=== PATIENT | male | born 1960 | race Caucasian/White ===

== ENCOUNTER 2023-10-04 14:54 | Outpatient (CLI) | payer OTHER, SELFPAY ==
--- NOTE | 2023-10-04 10:15 | DI.RAD_ITS ---
Exam(s) XR KNEE RT 3V AP,LAT,LAURIE EXAM: XR KNEE RT 3V AP,LAT,LAURIE CLINICAL HISTORY: eval R knee cyst with h/o TKA. TECHNIQUE: 2D digital imaging was performed. Three views. COMPARISON: CR RIGHT KNEE 3 VIEWS from 11/20/2009 FINDINGS: BONES: No acute fracture is present. No bony destructive lesion is seen. JOINTS: There has been no change in the total knee prosthesis. No abnormal surrounding lucencies. N o change in calcification adjacent to lateral femoral condyle. Screws again noted in medial femoral condyle. No joint effusion is seen. SOFT TISSUE: Normal. IMPRESSION: Stable appearance of the right knee prosthesis. DATA REPOSITORY: RADIATION DOSE DELIVERED:
== END 2023-10-04 14:55 | disposition home or self-care (01) ==
LOC: DIORS 14:58
PROVIDERS: Visit Provider Student in an Organized Health Care Education/Training Program
DX: M71.21 Synovial cyst of popliteal space [Baker], right knee (principal); T84.84XA Pain due to internal orthopedic prosthetic devices, implants and grafts, initial encounter; Z96.651 Presence of right artificial knee joint
CPT/HCPCS: 73562

== ENCOUNTER → 2023-10-19 00:10 | Outpatient (CLI) | payer OTHER, SELFPAY ==
--- NOTE | 2023-10-19 06:15 | DI.MRI_ITS ---
Exam(s) MR LOWER JOINT RT WO EXAM: MR LOWER JOINT RT WO CLINICAL HISTORY: PAINFUL RT TOTAL KNEE,SYNOVIAL CYST,t84.84XA,M71.21 TECHNIQUE: Multiplanar multisequence MRI of the knee was performed. COMPARISON: CR XR KNEE RT 3V AP,LAT,LAURIE from 10/04/2023 FINDINGS: PROSTHESIS/MARROW: There is a right knee prosthesis resulting abundant artifact. There does not appe ar to be a significant amount of bone edema to suggest osteomyelitis. EFFUSION: There is a significant size joint effusion both in the suprapatellar bursa region and there is also a large Grove's cyst in the medial popliteal fossa which exhibits a typical Grove cyst neck between the medial gastrocnemius and semimembranosus. This Grove cyst measures 9.8 cm craniocaudal l ength by 3.5 cm maximum AP measurement by 7 cm maximum width measurement. It contains a few thin int ernal septations. There is a small amount of fluid over the subjacent gastro cine miss which may imp ly some leaking from this large Grove cyst. In addition to the Grove cyst there is another smaller fluid collection more laterally located in the upper popliteal fossa, this separate fluid collection located only 4 mm lateral to the above describ ed Grove cyst. This fluid collection measures 6 cm cephalocaudal by 1.6 cm wide by 1.5 cm AP. There is a 3rd collection which is located in the upper most medial aspect of the popliteal fossa which ap pears from the above described Grove cyst by distance of 4 millimeters. This is multi sept ated and measures 4 cm craniocaudal by 1.5 cm AP by 2.1 cm wide. It actually contacts the most media l aspect of the Grove cyst. There is a slight possibility that there is actually a thin neck between these 2 adjacent collections. PATELLOFEMORAL COMPARTMENT: The quadriceps tendon is intact. The patellar ligament is intact. There is no abnormal intraosseous signal in the patella. No prepatellar fluid collection LATERAL COLLATERAL LIGAMENT COMPLEX: The fibular collateral ligament appears intact. The biceps femo ris tendon appears intact.Popliteus muscle and tendon are intact. MEDIAL COLLATERAL LIGAMENT: There are 2 screws in the medial femoral condyle which are probably relat ed to MCL attachment surgery. These are associated with abundant artifact. However, on the axial im ages the main MCL component appears intact. IMPRESSION: 1. Prosthesis components in place with no associated abnormal marrow signal. 2. In addition to a joint effusion in the suprapatellar bursa, there are multiple fluid collections p osteriorly in the popliteal fossa. The largest is a Grove's cyst measuring 9.8 cm craniocaudal x 3.5 cm AP x 7 cm wide. Immediately adjacent to this is a multi-septated para-articular ganglia on cysts measuring 4 cm craniocaudal x 1.5 cm AP x 2.1 cm wide. 3. More laterally in the popliteal fossa there is another fluid collection measuring 6 cm craniocauda l x 1.6 cm wide x 0.5 cm AP Other findings as above. DATA REPOSITORY:
== END ==
PROVIDERS: Visit Provider Student in an Organized Health Care Education/Training Program
DX: T84.84XA Pain due to internal orthopedic prosthetic devices, implants and grafts, initial encounter (principal); Z96.651 Presence of right artificial knee joint; M71.21 Synovial cyst of popliteal space [Baker], right knee
CPT/HCPCS: 73721

== ENCOUNTER → 2023-11-07 03:27 | Outpatient (CLI) | payer OTHER, SELFPAY ==
--- NOTE | 2023-11-07 07:02 | DI.NM_ITS ---
Exam(s) NM BONE SCAN 3 PHASE EXAM: RI BONE SCAN 3 PHASE CLINICAL HISTORY: ? loosening prosthesis,synovial cyst,m71.21,[id number]. TECHNIQUE: Injected Dose: 27.4 mCi Tc-99m MDP COMPARISON: CR LEFT SHOULDER 1 VIEW from 11/29/2009 CR LEFT CLAVICLE from 12/14/2009 CR XR KNEE RT 3V AP,LAT,LAURIE from 10/04/2023 MR MR LOWER JOINT RT WO from 10/19/2023 FINDINGS: Perfusion: Symmetric. Blood Pool: Mildly increased activity in the soft tissues around the right knee prosthesis. Delayed: Mildly increased activity at the lateral aspect of the femoral component of the prosthesis. Plain films show on elongated calcification in this region. Minimal activity in the tibial plateau. Some increased activity in the patella. Whole body images show some increased activity in the left mid humerus. There is an old fracture see n on the 2009 plain films. IMPRESSION: Mildly increased activity around the knee prosthesis. No definite findings to suggest loosening. DATA REPOSITORY:
== END ==
PROVIDERS: Visit Provider Student in an Organized Health Care Education/Training Program
DX: M71.21 Synovial cyst of popliteal space [Baker], right knee (principal); M79.89 Other specified soft tissue disorders; T84.84XA Pain due to internal orthopedic prosthetic devices, implants and grafts, initial encounter; Z96.651 Presence of right artificial knee joint
CPT/HCPCS: 78315

== ENCOUNTER 2023-11-29 05:03 | Outpatient (CLI) | payer OTHER, SELFPAY ==
[2023-11-29 12:20] LABS: HCT 45.5 % (40.0-50.0); HGB 15.1 g/dL (13.5-17.5); MCH 30.7 pg (27.0-33.0); MCHC 33.2 % (32.0-36.0); MCV 93 fL (80-95); MPV 10.6 fL (8.0-11.0); Platelet Count 326 10^3/uL (130-400); RBC 4.92 10^6/uL (4.36-5.78); RDW 14.1 % (11.8-14.1); RDW-SD 47.6 fL; WBC 10.04 10^3/uL (4.4-10.8)
[2023-11-29 12:48] LABS: Anion Gap 9.9 mmol/L (3-11); BUN 18 mg/dL (7-18); CO2 30.1 mmol/L (21.0-32.0); CREATININE 0.9 mg/dL (0.70-1.30); Calcium 9.5 mg/dL (8.5-10.1); Chloride 100 mmol/L (98-107); Estimated GFR 95.37 (mL/min/1.73m2); Glucose 99 mg/dL (74-106); Sodium 140 mmol/L (136-145)
== END 2023-11-29 05:04 | disposition home or self-care (01) ==
LOC: LBO 05:03
PROVIDERS: Visit Provider Student in an Organized Health Care Education/Training Program
DX: T84.84XA Pain due to internal orthopedic prosthetic devices, implants and grafts, initial encounter (principal); Z96.651 Presence of right artificial knee joint; M71.21 Synovial cyst of popliteal space [Baker], right knee; Z01.818 Encounter for other preprocedural examination; X58.XXXA Exposure to other specified factors, initial encounter
CPT/HCPCS: 36415; 80048; 85027

== ENCOUNTER 2023-12-12 08:47 | Inpatient (IN) | payer OTHER, SELFPAY ==
[2023-12-12] VITALS (9 sets, daily range): BP systolic 108–178; BP diastolic 58–89; PULSE 55–68; RESP 16–22; TEMP 36.3–37; O2SAT 90–99; BMI 34.2
[2023-12-12] MEDS: Lactated Ringers 1,000 ML 80 ML IV (09:37)
[2023-12-12] MEDS: Gabapentin 300 MG CAP PO ×2 (09:38→20:23)
[2023-12-12] MEDS: Acetaminophen 500 MG TAB 1000 MG PO ×3 (09:38→20:23)
[2023-12-12] MEDS: Celecoxib 200 MG CAP 400 MG PO (09:38)
--- NOTE | 2023-12-12 11:03 | ANES.PREOP_ITS ---
General Info Date of Service Date Performed: 12/12/23 Height: 5 ft 10 in Weight: 108.1 kg Body Mass Index (BMI): 34.2 Surgical Procedure: Operation Date: 12/12/23 11:40 Proposed Procedure Side Surgeon p Knee Total Revision, Patella & Poly Right Marko Hodges MD Meds Allergies and Home Medications Allergies Allergy/AdvReac Type Severity Reaction Status Date / Time chocolate flavor AdvReac UPSETS Verified 12/12/23 09:05 STOMACH NSAIDS (Non-Steroidal AdvReac Other (See Verified 12/12/23 09:05 Anti-Inflamma Comment) Home Medication Medication Instructions Recorded folic acid 1 mg tablet 2 mg PO DAILY 07/08/13 amlodipine 5 mg tablet 5 mg PO DAILY 08/29/23 fluoxetine 40 mg capsule 40 mg PO DAILY 08/29/23 methotrexate sodium 2.5 mg tablet 15 mg PO QWEEK 08/29/23 Current Visit Medications: Current Medications Generic Name Dose Route Start Last Admin Trade Name Freq PRN Reason Stop Dose Admin Acetaminophen 1,000 mg 12/12/23 06:00 12/12/23 09:38 Acetaminophen 500 Mg Tab PO 01/10/24 23:59 1,000 mg PREOP MERI Administration Acetaminophen 1,000 mg 12/12/23 14:00 Acetaminophen 500 Mg Tab PO TID MERI Aspirin 81 mg 12/12/23 20:00 Aspirin E.C. 81 Mg Tabec PO BID MERI Celecoxib 400 mg 12/12/23 06:00 12/12/23 09:38 Celecoxib 200 Mg Cap PO 01/10/24 23:59 400 mg PREOP MERI Administration Celecoxib 200 mg 12/12/23 20:00 Celecoxib 200 Mg Cap PO BID MERI Dexamethasone 4 mg 12/13/23 08:30 Dexamethasone 4 Mg Tab PO 12/14/23 08:31 DAILY MERI Docusate Sodium 100 mg 12/12/23 09:59 Docusate Sodium 100 Mg Cap PO BID PRN PRN Constipation Gabapentin 300 mg 12/12/23 06:00 12/12/23 09:38 Gabapentin 300 Mg Cap PO 01/10/24 23:59 300 mg PREOP MERI Administration Gabapentin 300 mg 12/12/23 20:00 Gabapentin 300 Mg Cap PO HS MERI Ringer's Solution 1,000 mls @ 80 mls/hr 12/12/23 06:00 12/12/23 09:37 IV 01/10/24 23:59 80 mls/hr INFUSION MERI Administration Cefazolin Sodium/Dextrose 2 gm in 50 mls @ 100 mls/hr 12/12/23 06:00 Ancef Duplex IVPB 01/10/24 23:59 PREOP MERI Tranexamic Acid/Sodium Chloride 1,000 mg in 100 mls @ 600 mls/hr 12/12/23 06:00 IVPB 01/10/24 23:59 PREOP MERI Cefazolin Sodium/Dextrose 1 gm in 50 mls @ 100 mls/hr 12/12/23 10:00 Ancef Duplex IVPB 12/13/23 02:29 Q8H MERI IV Miscellaneous Supplies 1 each 12/12/23 06:00 Iv Access IV 01/10/24 23:59 DIRECTED MERI Ondansetron HCl 4 mg 12/12/23 09:59 Ondansetron 4 Mg/2 Ml Vial IVP Q6H PRN PRN Nausea Oxycodone HCl 0 mg 12/12/23 09:59 Oxycodone 5 Mg Tab PO Q3H PRN PRN Pain Pantoprazole Sodium 40 mg 12/13/23 07:30 Pantoprazole 40 Mg Tabcr PO DAILY@0730 MERI Polyethylene Glycol 17 gm 12/12/23 09:59 Polyethylene Glycol 3350 17 Gm Packet PO BID PRN PRN Constipation Sodium Chloride 0 ml 12/12/23 06:00 Normal Saline Flush 10 Ml Syr IV 01/10/24 23:59 PRN PRN Sodium Chloride 0 ml 12/12/23 06:00 Normal Saline 10 Ml Vial IJ 01/10/24 23:59 DIRECTED PRN Sterile Water 0 ml 12/12/23 06:00 Water,Injection,Sterile 10 Ml Vial IJ 01/10/24 23:59 DIRECTED PRN PFSH Active Problems Active Problems: Problem Status Onset Code Painful total knee replacement, right T84.84XA, Z96.651 Synovial cyst of right popliteal space M71.21 Depression F32.A Seropositive rheumatoid arthritis M05.9 Cardiac murmur R01.1 Hypertension I10 Surgical History Surgical History History of surgery on arm Metal carmen in (L) arm Total knee arthroplasty (03/26/06) Right ORIF clavicle (11/29/09) left Tobacco Smoking/Tobacco Use Status: Never Alcohol Alcohol Intake: never Substance Use Substance use: Daily Substance use type: marijuana Details: No marijuana use today. Vital Signs and Lab Results Vital Signs Most Recent Vital Signs in EMR: Most Recent Vital Signs Temp Pulse Resp BP Pulse Ox 36.4 C L 59 L 16 162/75 H 99 12/12/23 09:07 12/12/23 09:07 12/12/23 09:07 12/12/23 09:07 12/12/23 09:07 Lab Results Blood Type / Crossmatch: No Data to Display Complete Blood Count: White Blood Count 10.04 10^3/uL (4.4-10.8) 11/29/23 12:06 Red Blood Count 4.92 10^6/uL (4.36-5.78) 11/29/23 12:06 Hemoglobin 15.1 g/dL (13.5-17.5) 11/29/23 12:06 Hematocrit 45.5 % (40.0-50.0) 11/29/23 12:06 Platelet Count 326 10^3/uL (130-400) 11/29/23 12:06 Complete Metabolic Panel: Sodium 140 mmol/L (136-145) 11/29/23 12:06 Potassium 4.0 mmol/L (3.5-5.1) 11/29/23 12:06 Chloride 100 mmol/L (98-107) 11/29/23 12:06 Carbon Dioxide 30.1 mmol/L (21.0-32.0) 11/29/23 12:06 BUN 18 mg/dL (7-18) 11/29/23 12:06 Creatinine 0.9 mg/dL (0.70-1.30) 11/29/23 12:06 Est GFR (CKD-EPI 2020) 95.37 (mL/min/1.73m2) 11/29/23 12:06 Calcium 9.5 mg/dL (8.5-10.1) 11/29/23 12:06 Glucose 99 mg/dL (74-106) 11/29/23 12:06 Liver Function Panel: No Data to Display Coagulation Panel: No Data to Display Cardiac Panel: No Data to Display Arterial Blood Gas: 2 No Data to Display Venous Blood Gas: No Data to Display Pancreas Panel: No Data to Display Thyroid Panel: No Data to Display Infectious Disease: No Data to Display Blood Cultures: No Data to Display Toxicology Panel: No Data to Display Imaging and Studies Imaging and Studies Study information below may be from another EMR and interpreted by another provider. Please see original notes in EMR for more complete details. Echocardiogram Summary: 12/20: LVEF 65%, no sig valve issues. Anesthesia Assessment and Plan Anesthesia History Personal History: No History of Anesthesia Complications Family History: No Family History of Anesthesia Complications Exercise Tolerance Exercise Tolerance: Metabolic Equivalents>4 Cardiac & Pulmonary Exam Cardiac Exam: Normal S1/S2 Heart Sounds Pulmonary Exam: Clear Bilateral Breath Sounds Implantable Cardiac Device Does patient have a Pacemaker or an ICD?: No Airway Exam Known Difficult Airway: No Mallampati Class: 3 Mouth Opening: Normal (> 3cm) Thyromental Distance: Greater than 3 cm Neck Range of Motion: Full ROM Neck Circumference: Thick Teeth Condition: Normal Dentition ASA Classification ASA Score: ASA 2 Emergency Case?: No NPO Status NPO Status: NPO Clears >2 hours, Solids >8 hours Anesthesia Plan Resuscitation Status: Full Code Anesthesia Technique: Spinal Anesthesia Airway Planned: Natural Airway Pain Management: Surgeon and patient request nerve block Monitors Used: Standard Monitors Preoperative Comments:: 63 yo male for TKA revision. Sig PMHx: HTN (amlodipine), RA (methotrexate), depression (fluoxetine). never smoker, daily cannabis.
[2023-12-12] MEDS: ceFAZolin 2 GM/50 ML BAG IVPB (12:21)
[2023-12-12] MEDS: TRANEXAMIC ACID/SOD. CHL. 1,000 MG/100 ML BAG 600 MG IVPB (12:35)
--- NOTE | 2023-12-12 13:00 | W.ANESNERVE ---
Nerve Block Single Injection Procedure Date and Time Date Performed: 12/12/23 Procedure Start: 11:54 Location Where Procedure Performed Procedure Location: Day Surgery Unit Reason Performed: Postoperative Analgesia Requesting Provider: Marko Hodges Timeout Performed Timeout Performed: Yes Monitoring Used ECG, Blood Pressure, SpO2, ETCO2 and See EMR for corresponding vital signs Sterility Sterility: Hand Hygiene, Surgical Cap, Surgical Mask, Sterile Gloves, Sterile Drape/Sheet, Eye Protection and Chlorhexidine Sedation Given During Procedure Sedation Given (Indicate Dose Given): Versed IV Dose:: 3mg IVP Patient Mental Status Patient Mental Status: Sedate with meaningful communication Nerve Block 1st Nerve Block: Laterality: Right Block Type: Adductor Canal Ultrasound Image Saved?: Yes Needle / Catheter Used: 100mm SonoPlex II Local Anesthetic Bolus (Indicate Dose Given): Lidocaine used for local infiltration of skin and Ropivacaine 0.5% Dose:: 0.5%/25cc (125mg) Additives (Indicate Dose Given): Epinephrine to make 1:200,000 (5mcg/ml) Dose:: 125mcg and Decadron Dose:: 10mg PF Ultrasound: Sterile probe cover and gel used Nerve Stimulator: Not Used Paresthesia: None Procedure Tolerated: No Complications and Patient tolerated well Procedure Outcome: Successful Performed By: Ruy Huber
--- NOTE | 2023-12-12 15:21 | NUR.NOTE ---
Nursing Note: admitted from PACU, denies pain, states he has morongo numbness/tingling to right LE (surgical side). slid over to bed using hover mat. VSS
[2023-12-12] MEDS: Normal Saline Flush 10 ML SYR IV ×2 (16:01→20:24)
--- NOTE | 2023-12-12 16:05 | W.ANESPOSTOP ---
Postoperative Evaluation Date, Time and Location Date Performed: 12/12/23 Time Performed: 16:05 Patient Location: Med/Surg Vital Signs Most Recent Imported Vital Signs: Most Recent Vital Signs Temp Pulse Resp BP Pulse Ox 36.5 C 61 20 178/89 H 94 12/12/23 14:51 12/12/23 14:51 12/12/23 14:51 12/12/23 14:51 12/12/23 14:51 Pain Score Most Recent Pain Score: Most Recent Pain Score Pain Level 2 12/12/23 16:00 Assessment Mental Status: Awake (Alert & Oriented to Patient Baseline) Airway and Respiratory Function: Patent airway with normal (patient baseline) respiratory exam Cardiovascular Function: Hemodynamically Stable Hydration Status: Adequately Hydrated Nausea & Vomiting: No Nausea or Vomiting Pain: Pain is tolerable per patient Peripheral Nerve Block: Regional nerve block not resolved at time of post operative discharge
--- NOTE | 2023-12-12 16:33 | PT.INIE ---
PT Notes Physical Therapy Inpatient Initial Evaluation Date: 12/12/2023 Referring Doctor: ALEK Cummings PT Orders: PT CONSULT: S/P Ortho surgery Precautions: Fall. Standard precautions. WBAT on right LE with AD per Dr. Hodges. Patient Profile/Admitting Diagnosis: Isidro is a 63-year-old male with painful painful total knee arthroplasty on the right side as well as synovitis cyst of the right popliteal space status post right TKA revision on postoperative day 0. Initial right TKA was done back in 2005. PMHX: Surgical History Total knee arthroplasty (03/26/06) Right ORIF clavicle (11/29/09) left Social History/Home Situation: Independent in all aspects of ADLs prior to [id number] male has had increasing difficulty with mobility ADL performance due to painful TKA. Equipment Owned/DME: None Subjective: 08/08 pain in the R knee with WB. Denied headache, chest pain, and lightheadedness throughout session. Objective: General Observation: Resting in bed. MICHAEL wraps to right knee. Cryocuff to right knee. TEDS to left leg. Mental Status: Alert and oriented as to person, place, time, and purpose. Able to pay attention, focus, and respond appropriately. Pain: As above Vital Signs: WNL as closley monitored by Nurse Velarde ROM: Right Lower Extremity: Hip flexion WFL. Hip abduction WFL. Knee flexion about 10 degrees to 100 degrees ACTIVELY while seated at edge of bed. Ankle dorsiflexion WFL. Ankle plantarflexion WFL. Left Lower Extremity: Hip flexion WFL. Hip abduction WFL. Knee flexion WFL. Ankle dorsiflexion WFL. Ankle plantarflexion WFL. Strength: Right Lower Extremity: Hip flexors 4/5. Hip abductors 4/5. Knee flexors 3-/5. Knee extensors 3-/5. Ankle dorsiflexors 4/5. Ankle plantarflexors 4/5. Left Lower Extremity: Hip flexors 5/5. Hip abductors 5/5. Knee flexors 5/5. Knee extensors 5/5. Ankle dorsiflexors 5/5. Ankle plantarflexors 5/5. Sensation: Intact as to pain and light pressure and bilateral lower extremities Bed Mobility/Transfers: Minimal cueing provided for use of B hands as needed for support, movement sequence, AD management, and posture to reduce fall risk and minimize pain report Supine to sit stand by assist with HOB at 30 degrees Sit to stand contact-guard assist using FWW Stand to sit contact-guard assist using FWW using both hands for support Bed to toilet seat contact-guard assist using FWW Toilet seat to reclining chair contact-guard assist using FWW Gait: Facilitated safe and correct performance of level surface ambulation covering a distance of 100 feet with a reciprocal swing through heel-toe gait pattern requiring only contact-guard assist and wheelchair follow. Minimal verbal cueing only for limb sequence, AD management, and posture to minimize pain report and reduce fall risk. Stairs: Will test tomorrow morning Balance: Static Sitting: Normal Dynamic Sitting: Normal Static Standing: Fair Dynamic Standing: Fair Special Tests: Mobility Limitations Standardized Measure [facility] AM-PAC 6 clicks Basic Mobility Inpatient Short Form: Raw Score: 20 CMS Score: 36% deficit Informed Consent/Education: Patient was instructed in purpose of PT consult and plan of care. Agreeable to proceed with established PT POC to achieve personal goals. ASSESSMENT: Advised patient on the use of supportive footwear at home. Required use of front wheeled walker for all mobility ADL performance maximize independence and reduce fall risk without any undue pain. Patient presents with clinical signs and symptoms consistent with current/admitting diagnoses that have resulted to mobility limitations, gait instability, generalized weakness, and overall ADL decline as demonstrated by the following impairment level findings: 1. Decreased strength to R knee major muscle groups 2. Impaired sitting/standing balance 3. Impaired activity tolerance 4. Limitation of joint range of motion in R knee Impairments are contributing to the following functional limitations: 1. Decline in bed mobility skills 2. Decline in transfer skills 3. Difficulty with ambulation without assistive device and physical assistance 4. Increased completion time for mobility ADL performance 5. Increased risk for falls 6. Difficulty with managing steps alone safely Patient is assessed as a 61143 moderate complexity complexity based on the following: History: 63-year-old male with past medical history as indicated above Examination: Demonstrable impairment in strength, balance, and mobility level with underlying impairments and functional limitations as exhibited above as well as deficit score of 46% utilizing the [facility] [place] Mobility Inpatient Short Form Presentation: Evolving Decision Makin moderate complexity Goals: Goals X1 week 1. Supine-Sit independent 2. Sit-Supine independent 3. Sit-Stand independent 4. Stand-Sit independent with FWW 5. Bed-Chair independent with FWW 6. Chair-Bed independent with FWW 7. Independent gait on level surface with use of FWW for at least 300 feet without report of pain nor dyspnea 8. Independent stair negotiation while holding onto B rails for at least 3 steps without report of pain nor dyspnea 9. Independent with home exercise program 10. Good static and dynamic standing balance/tolerance Plan of Care/Treatment Plan: 1-2x/day, 7 days/week x 1 week. Plan of care has been reviewed with the [employer] providing the service under Physical Therapy direction. Initiate Physical Therapy intervention for pain management as needed, strengthening, bed mobility, transfers, gait, stairs, balance training, and use of assistive device. -Ensure that following is done with patient prior to discharge: Stair negotiation training HEP review Increase independence with level surface ambulation DISCHARGE RECOMMENDATIONS: [] Home with no services [] [] Home with services [specify] [X] Home with outpatient PT. home when medically cleared by orthopedic surgeon. Recommend outpatient PT services in order to optimize functional mobility outcomes and facilitate return to independent community ambulation without an assistive device. [] SNF for continued rehabilitation [] [] Care Home Care [] [] SNF versus LTC based on ability to participate and progress [] TREATMENT CODE/TIME: 9716 2 x 20 minutes for 1 unit, 9753 0 x 10 minutes for 1 unit (16:33-17:03). Thank you for the opportunity to participate in the care of this patient. Abi Enciso PT, DPT, CLT [facility] [place], [place]
[2023-12-12] MEDS: Celecoxib 200 MG CAP PO (20:23)
[2023-12-12] MEDS: Aspirin E.C. 81 MG TABEC PO (20:23)
[2023-12-12] MEDS: ceFAZolin 1 GM/50 ML BAG IVPB (20:24)
--- NOTE | 2023-12-12 21:21 | W.PM.OP ---
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 POST-OP DIAGNOSIS: same (Polyethylene Fracture) PROCEDURE: Revision of patella component - Right Knee Revision of polyethylene - Right Knee Extensive synovectomy and debridement - Right Knee SURGEON: Marko Hodges JAVA TECHNICAL ARCHITECT: Desean Mahmood ANESTHESIA TYPE: Spinal Refer to Anesthesia Record ESTIMATED BLOOD LOSS: 100 TOURNIQUET TIME: 0 COMPLICATIONS: None Patient was transported to: PACU Patient's condition: stable Implants: Depuy 38mm patella button Depuy Sigma 5x12.5mm RP/PS Polyethylene Indications: Isidro is an active 63-year-old who underwent knee replacement on the right knee for posttraumatic arthritis 16 or so years ago. He had some progressive mild pain but notable swelling about the knee. X-rays showed maltracking and apparent failure of the patellar component. MRI showed significant synovitis, effusion, with debris. He had mild activity on the bone scan and no overt signs of loosening clinically or radiographically. Therefore, I offered aggressive synovectomy debridement with revision of the patellar component and replacement of the polyethylene. I discussed the technical features of this case. I discussed the risk to include bleeding, infection, pain, stiffness, continued swelling, need for repeat procedures, damage to nerves and vessels, recurrence, blood clot. Findings: There was a large effusion within the knee. The polyethylene between the femur and tibia had notable wear laterally about the knee fracturing of the anterior aspect of the lateral portion of the polyethylene. There is also notable wear and deformity of the post. The patella was tracking on its medial edge with fracturing and absence of a large portion of the medial patellar button. I was unable to evacuate the popliteal cyst from within the knee. Procedure Description: Isidro was greeted in the preoperative holding area where the correct side was identified and marked. The consent was reviewed with the patient and signed. The history and physical was updated. All questions were answered. Preoperative mediacations were administered: Acetaminophen 1000mg, Celebrex 400mg, and Gabapentin 300mg. An adductor canal block was then administered by the anesthesia team in the DSU. Isidro was taken back to the operating room. A spinal anesthestic was administered. The patient was placed into the supine position on the operating room table. Posts were placed for positioning during the procedure. All bony prominences were well padded. Prophylactic antibiotics in the form of Cefazolin were administered. The left leg was then prepped with Chloraprep and draped in a standard fashion with impervious stockinette. A second prep with Chloraprep was performed prior to application of Iodine impregnated skin protection. A timeout to confirm correct identity, side and site, procedure, allergies, anesthesia, and medical concerns was performed. With the knee in some flexion, the previous medial curved incision was utilized. Full thickness skin flaps were raised once the extensor mechanism was encountered. These were raised medially and laterally. There was some widening of the tenderness junction of the quadriceps at the level of the patella which I thought could represent potential stretching of the arthrotomy repair. However, this appears to be intact without defect without clear diastases of the arthrotomy site. I then performed a medial parapatellar arthrotomy. There is a significant rooney of joint fluid encountered with polyethylene particulate debris. It was obvious at this point that there was fracturing of the anterior aspect the lateral polyethylene. Blood cultures utilized for coagulation. An aggressive synovectomy was performed utilizing 2 Allis and 2 Jayne clamp. This was taken around the entirety of the knee. There is some synovitis and some inflammatory changes seen at the bone cement junction. However, there is no gross loosening. There is an area of bony erosion seen over the anterior medial aspect of the proximal tibia adjacent to the tibial tray. However, there is no gross loosening. Attention was turned to the patella. There was notable wear of the patella over his medial side with approximate one third of the patella button not present. Using a freehand type technique I performed resection of the patella leaving behind approximately 13 to 14 mm in a level fashion. Any remnant cement polyethylene was removed. A 38 mm patella fit appropriately and was trialed showing excellent tracking. Lug drills were prepared. The knee was then flexed up and the polyethylene was removed. I then continued to perform synovectomy posteriorly. There is notable synovitis in the posterior aspect the knee with some polyethylene debris. This was removed. I tried to enter the popliteal cyst from within the knee utilizing a Largo as well as with the capsular releases. However, was unable to express significant fluid from the popliteal cystic structures. Once again, irrigated the knee. There is no remnant debris appreciated. The knee in a hyperflexed position a new 5 x 12.5 mm rotating platform, posterior stabilized polyethylene was then inserted. The knee was then brought into extension. The periosteal and capsular tissues were then systematically injected with a periarticular cocktail consisting of 50cc 0.25% ropivacaine, epinephrine, clonidine, ketorolac. Wound was irrigated utilizing surgery for Betadine solution where he was allowed to sit for 3 minutes prior to irrigating out with saline. Using #2 FiberWire, the arthrotomy and quadriceps split was repaired. This was done in interrupted fashion using [id number] and simple sutures. This was reinforced with a running strata fix, barbed suture. Deep tissues were then reapproximated with 0 Vicryl and 2-0 Vicryl. The skin was closed with a running 3-0 Monocryl in a subcuticular fashion. This was reinforced with skin glue. A Mepilex silver dressing was applied along with a [id number]-ysvsj MICHAEL wrap. A CryoCuff was applied. Jonathan was transferred to the hospital stretcher without difficulty an suffering no apparent complication. Isidro has a good prognosis. Aspirin 81mg BID will be used for DVT prophylaxis.
[2023-12-13 03:38] VITALS: BP 132/76; PULSE 60; RESP 16; TEMP 36.7; O2SAT 96
[2023-12-13] MEDS: ceFAZolin 1 GM/50 ML BAG IVPB (03:52)
[2023-12-13] MEDS: Normal Saline Flush 10 ML SYR IV (03:52)
[2023-12-13] MEDS: oxyCODONE 5 MG TAB PO (05:40)
[2023-12-13 07:06] VITALS: BP 143/66; PULSE 60; RESP 20; TEMP 37.1; O2SAT 95
--- NOTE | 2023-12-13 07:58 | DSE_ITS ---
Date of service: 12/13/23 Time of Service: 07:58 DS: Diagnosis Discharge Diagnosis (1) Painful total knee replacement, right: Status: Acute Discharge Plan Disposition Patient Disposition: Home Condition: Good Discharge Details Reason For Visit: Painful R TKR Admit Date/Time: 12/12/23 08:47 Admit Provider: Marko Hodges Attending Provider: Marko Hodges Primary Care Provider: Linda Buckley [facility] [place] Course Hospital Course: Patient was admitted to the medical/surgical floor following the procedure. The surgery was tolerated well without any notable medical, surgical, or anesthetic complications. Mobilization began postoperatively. He was voiding spontaneously. Vitals were stable. Physical therapy worked with the patient and was cleared for discharge home. No acute medical issues. Pain was controlled on oral regimen. Home Meds and New Rx's Prescriptions: New celecoxib 200 mg capsule 200 mg PO BID PRN (Reason: pain) Qty: 60 1RF aspirin 81 mg tablet,delayed release (DR/EC) 81 mg PO BID Qty: 60 0RF acetaminophen 500 mg tablet 1,000 mg PO Q8H PRN (Reason: pain) Qty: 90 3RF pantoprazole 40 mg tablet,delayed release (DR/EC) 40 mg PO DAILY Qty: 30 0RF oxycodone 5 mg tablet 5 mg PO Q6H PRN (Reason: pain) Qty: 12 0RF Continued amlodipine 5 mg tablet 5 mg PO DAILY fluoxetine 40 mg capsule 40 mg PO DAILY methotrexate sodium 2.5 mg tablet 15 mg PO QWEEK folic acid 1 MG tablet 2 mg PO DAILY Discharge Instructions Additional Instructions: Total Knee Discharge Instructions Activity: The most important activity is to walk and to work on gentle motion (both flexion and extension). You should try to take short walks a few times a day. It is important that when resting you work on keeping the knee straight. Avoid putting a pillow behind the knee as this will encourage flexion. Work on range of motion exercises as provided by Physical Therapy. - Start outpatient physical therapy within 2 weeks. - You should wear the ESTHELA hose on both legs for 2 weeks. You may remove these at night. You may also use any compression sock in place of the ESTHELA hose. - Utilize [employer] to review exercises, see videos on exercises and obtain basic information pertaining to your surgery and your recovery. Dressing: Remove the Chapo wrap by 2 days after your surgery and put on the ESTHELA stocking given to you from the hospital. Keep the surgical dressing (underneath the CHAPO wrap) in place for at least one week. After the first week it may be removed and replaced with light gauze and tape or nothing. The wound and dressing may get wet after 3 days but avoid soaking the dressing or otherwise it will need to be changed. Many people prefer covering the dressing with cling wrap (saran wrap) to minimize it from getting soaked. If it gets wet, just pat dry. If it starts to peel off then it will need to be changed. Medications: - You should take Tylenol and anti-inflammatory Celebrex as your primary pain control medications. If the Celebrex is too expensive or not covered, please call the office for another alternative (Advil/Ibuprofen or Naproxen/Aleve) - You have been prescribed a stronger pain medication Oxycodone for breakthrough pain, take as needed as prescribed. - You have also been prescribed a stomach acid reduction agent Pantoprozole to help reduce stomach acid and reflux. - You will be taking Aspirin 81mg twice a day for DVT prevention unless instructed otherwise. - If you have constipation you should take Colace or Miralax (both [id number]). It takes most people 3-4 days to have a bowel movement. Follow-up: 2 weeks If you have any acute concerns or questions, please do not hesitate to contact the office at [phone]. You may contact Dr. Hodges with any questions after hours through the hospital at [phone] or on his cell phone at [phone]. Referrals: Marko Hodges MD [ [facility] STAFF PHYSICIAN] - Activity:: Activity as Tolerated Equipment/Supplies:: Walker Diet:: As Tolerated Discharge Orders Discharge Orders: Discharge Order (Routine); Ordered 12/13/23 Ordered By: Marko Hodges DS: Summary Time Spent with Patient providing and/or coordinating discharge services: Less than 30 minutes Status at Discharge Functional status at discharge: uses cane/walker Overall status at discharge: patient is progressing back to baseline Mental Status: mental status grossly normal Speech and Movement: speech and movement normal Mood: congruent mood Affect: normal affect Quality:SDOH Health Related Social Needs: No Data to Display Exam Narrative Exam Narrative: Sitting up in the bed. No acute distress. Alert and oriented x 3. Evaluation of the right lower extremity shows a clean dry and intact dressing. Straight leg raise intact. Active ankle dorsiflexion, plantarflexion, great toe extension and flexion. Sensation intact to light touch over the deep and superficial peroneal nerve and tibial nerve. Psych Mental Status: mental status grossly normal Speech and Movement: speech and movement normal Mood: congruent mood Affect: normal affect DS: Data Vitals/I&O Vitals and I&O: Vital Signs Temperature 37.1 C 12/13/23 07:06 Temperature Source Skin 12/13/23 07:06 Pulse 60 12/13/23 07:06 Pulse Rhythm Regular 12/13/23 04:07 Respiratory Rate 20 12/13/23 07:06 Respiratory Effort Normal, Non-Labored 12/13/23 04:07 Respiratory Depth Normal 12/13/23 04:07 Respiratory Pattern Normal 12/13/23 04:07 Blood Pressure 143/66 H 12/13/23 07:06 Blood Pressure Mean 95 12/12/23 11:47 Blood Pressure Position Supine 12/12/23 11:47 Pulse Oximetry 95 12/13/23 07:06 Respiratory End-tidal CO2 34 12/12/23 14:36 Oxygen Delivery Method Room Air 12/13/23 07:06 Oxygen Flow Rate 0 12/13/23 07:06 Pain Level 0 12/13/23 03:38 Comment 1203 Block complete. Patient tolerated well. Call light in reach. 12/12/23 11:47 Intake & Output 12/12/23 12/12/23 12/13/23 11:59 23:59 11:59 Intake Total 950 / 950 250 / 250 Output Total 100 / 100 Balance 850 / 850 250 / 250 Weight 108.1 kg Intake: IV 950 / 950 250 / 250 Output: Estimated Blood Loss 100 / 100 Other: Urine Appearance Clear Clear Comment voided in toilet Emesis Description None PFSH All Active Problems Painful total knee replacement, right (Acute) Synovial cyst of right popliteal space (Acute) Depression (Chronic) Seropositive rheumatoid arthritis (Acute) Cardiac murmur (Acute) Hypertension (Chronic) Surgical History History of surgery on arm Metal carmen in (L) arm Total knee arthroplasty (03/26/06) Right ORIF clavicle (11/29/09) left Social History Smoking/Tobacco Use Status: Never Smoking risk assessment performed?: Yes Alcohol Intake: never Drug use: Daily Substance use type: marijuana Details: No marijuana use today. Housing: house Do you feel safe at home: Yes Do you feel safe in your relationship?: Yes Time Spent with Patient Time Spent with Patient: <45 minutes Time was spent: preparing to see the patient(eg.review tests), ordering medications,tests, procedures and counseling the patient
[2023-12-13] MEDS: Folic Acid 1 MG TAB 2 MG PO (08:17)
[2023-12-13] MEDS: Acetaminophen 500 MG TAB 1000 MG PO (08:18)
[2023-12-13] MEDS: Celecoxib 200 MG CAP PO (08:19)
[2023-12-13] MEDS: FLUoxetine 20 MG CAP 40 MG PO (08:19)
[2023-12-13] MEDS: Dexamethasone 4 MG TAB PO (08:20)
[2023-12-13] MEDS: Aspirin E.C. 81 MG TABEC PO (08:21)
[2023-12-13] MEDS: Pantoprazole 40 MG TABCR PO (08:21)
[2023-12-13] MEDS: amLODIPine 5 MG TAB PO (08:21)
--- NOTE | 2023-12-13 14:59 | PT.INTREAT ---
PT Notes Visit Reasons: Painful R TKR Inpatient Physical Therapy Treatment Note [facility] Date: 12/13/23 SUBJECTIVE: Isidro states that he is doing well. He is pleased with where he is at. He declines walking with me this am as he is waiting for his ride home. He is agreeable to performing his HEP. OBJECTIVE: []? Therapeutic Exercises ([id number]) 20 min: Direct one-on-one instruction in therapeutic exercises to develop strength, endurance, range of motion and flexibility. ? Exercises ?performed his HEP of QS, SLR, Heel slides, LAQ seated march and AP x 15-20 each ASSESSMENT:? tolerated session well. He had already wash and dressed himself up this am in bathroom independently. Reports that he has done this before and is looking forward to getting home. PLAN: pt d/c home. TREATMENT CODE/TIME: 20 min [id number]
== END 2023-12-13 10:00 | disposition home or self-care (01) | DRG 465 ==
LOC: PDS 08:48 → MS 15:14
PROVIDERS: Admitting Provider Student in an Organized Health Care Education/Training Program; Visit Provider Student in an Organized Health Care Education/Training Program
PROC: 0SPC09Z Removal of Liner from Right Knee Joint, Open Approach (ICD-10-PCS; CPT 27487; principal; 2023-12-12 11:30)
DX: T84.84XA Pain due to internal orthopedic prosthetic devices, implants and grafts, initial encounter (principal); T84.012A Broken internal right knee prosthesis, initial encounter; T84.022A Instability of internal right knee prosthesis, initial encounter; M65.861 Other synovitis and tenosynovitis, right lower leg; Z96.651 Presence of right artificial knee joint; M71.21 Synovial cyst of popliteal space [Baker], right knee; F32.A Depression, unspecified; M05.9 Rheumatoid arthritis with rheumatoid factor, unspecified; R01.1 Cardiac murmur, unspecified; I10 Essential (primary) hypertension
CPT/HCPCS: 27486; 76942; 97110; 97162; 97530; C1776; J0171; J0690; J1100; J2250; J2371; J2401; J2405; J2704; J8540

== ENCOUNTER 2023-12-27 15:23 | Outpatient (CLI) | payer OTHER, SELFPAY ==
--- NOTE | 2023-12-27 11:44 | DI.RAD_ITS ---
Exam(s) XR KNEE RT 3V AP,LAT,LAURIE EXAM: XR KNEE RT 3V AP,LAT,LAURIE CLINICAL HISTORY: F/U REVISION RIGHT TKA. TECHNIQUE: 2D digital imaging was performed. Three images were obtained. Merchant, AP and lateral v iews were obtained. COMPARISON: CR XR KNEE RT 3V AP,LAT,LAURIE from 10/04/2023 FINDINGS: BONES: There are stable post operative changes of a right total knee replacement present. No fractur e or dislocation. JOINTS: The orthopedic hardware is in good position. No evidence of hardware loosening. There is a joint effusion present. SOFT TISSUE: There is marked swelling anterior to the extensor mechanism. IMPRESSION: 1. Stable right total knee replacement. 2. Joint effusion and marked swelling of the soft tissues anterior to the extensor mechanism. DATA REPOSITORY: RADIATION DOSE DELIVERED:
== END 2023-12-27 15:24 | disposition home or self-care (01) ==
LOC: DIORS 15:24
PROVIDERS: Visit Provider Student in an Organized Health Care Education/Training Program
DX: Z47.1 Aftercare following joint replacement surgery (principal); Z96.651 Presence of right artificial knee joint
CPT/HCPCS: 73562

== ENCOUNTER 2024-12-11 10:19 | Outpatient (CLI) | payer OTHER, SELFPAY ==
--- NOTE | 2024-12-11 10:00 | DI.RAD_ITS ---
Exam(s) XR KNEE RT 2V AP,LAT EXAM: XR KNEE RT 2V AP,LAT CLINICAL HISTORY: ANNUAL F/U R KNEE. TECHNIQUE: 2D digital imaging was performed. Two images were obtained. AP and lateral views were ob tained. COMPARISON: CR XR KNEE RT 3V AP,LAT,LAURIE from 12/27/2023 FINDINGS: BONES: There are stable post operative changes of a right total knee arthroplasty present. No fractu re or dislocation. JOINTS: The orthopedic hardware is in good position. No evidence of hardware loosening. SOFT TISSUE: Dystrophic calcifications are again seen adjacent to the lateral femoral condyle which a re old. IMPRESSION: Stable right total knee arthroplasty. DATA REPOSITORY: RADIATION DOSE DELIVERED:
== END 2024-12-11 10:20 | disposition home or self-care (01) ==
LOC: DIORS 10:20
PROVIDERS: Visit Provider Student in an Organized Health Care Education/Training Program
DX: Z47.1 Aftercare following joint replacement surgery (principal); Z96.651 Presence of right artificial knee joint
CPT/HCPCS: 99213; 73560

== ENCOUNTER 2025-01-28 17:15 | Emergency (ER) | payer OTHER, SELFPAY ==
[2025-01-28 17:20] VITALS: BP 132/85; PULSE 74; RESP 20; TEMP 36.7; O2SAT 93
--- NOTE | 2025-01-28 17:29 | W.ED.GENAD ---
Discharge Plan Disposition Patient Disposition: Home Condition: Stable Discharge Details Clinical Impression: Abscess of skin of right shoulder Primary Care Provider: Linda Buckley ED Provider: Ancelmo Muse Home Meds and New Rx's Prescriptions: Continued amlodipine 5 mg tablet 5 mg PO DAILY fluoxetine 40 mg capsule 40 mg PO DAILY methotrexate sodium 2.5 mg tablet 15 mg PO QWEEK folic acid 1 MG tablet 2 mg PO DAILY Discharge Instructions Instructions: Abscess Incision and Drainage ED Additional Instructions: You were seen in the emergency department for your infected sebaceous cyst of the right shoulder, this was drained, cyst soft and refill so please keep your general surgery visit you have scheduled. Please pull the packing out in about 72 hours, keep warm compresses daily to the area to encourage more draining. Take Tylenol and ibuprofen for any pain as needed, please return for any worsening redness, fever, redness spreading or from the area. Referrals: Linda Buckley [Primary Care Provider] Discharge Data Discharge Date/Time-TO BE ENTERED AT DEPARTURE: 01/28/25 18:34 HPI General Date/Time Provider Initiated Documentation: 01/28/25 17:28. HPI Narrative: 64 year-old male presents to ED today by POV/ambulating with a chief complaint of soft tissue abscess/swelling to R shoulderblade with onset for months, recently started getting reddened and painful. Quality described as throbbing, very tender, no radiation to fever, active drainage, red streaking outward, nausea, endorses it hurts when he moves his neck/arm due to proximity. Severity is described as mdoerate. Palliating factors include nothing specific attempted. Provoking factors include touch/movement. Events leading up to the incident/Associated Symptoms: Patient had a tele-health visit with [facility], and had outpatient Gen Surg scheduled in April. Patient not anticoagulated. Related Data Home Medications ?Medication ?Instructions ?Recorded ?Confirmed folic acid 1 mg tablet 2 mg PO DAILY 07/08/13 01/28/25 amlodipine 5 mg tablet 5 mg PO DAILY 08/29/23 01/28/25 fluoxetine 40 mg capsule 40 mg PO DAILY 08/29/23 01/28/25 methotrexate sodium 2.5 mg tablet 15 mg PO QWEEK 08/29/23 01/28/25 Allergies Allergy/AdvReac Type Severity Reaction Status Date / Time chocolate flavor AdvReac UPSETS Verified 01/28/25 17:19 STOMACH NSAIDS (Non-Steroidal AdvReac Other (See Verified 01/28/25 17:19 Anti-Inflamma Comment) General Stated Complaint: RashLesion HELIO: 3 Review of Systems All systems reviewed & are unremarkable except as noted in HPI and below Exam Narrative Exam Narrative: GENERAL APPEARANCE: Well-nourished, non-toxic, awake and alert, atraumatic, no acute distress. SKIN: Warm, pink, dry, 2cm fluctuant erythematous indurated area of swelling to R shoulderblade HEAD: Normocephalic, atraumatic, normal hair distribution for gender/age. EYES: Normal conjunctiva, no exudates on lids/lashes. ENT: Nares patent, no circumoral cyanosis, no facial swelling NECK: Supple, trachea midline, painless cervical ROM. LUNGS/CHEST: Non-labored respirations, normal A/P diameter, symmetrical expansion, no chest wall deformity HEART (CV/PV): No peripheral edema, no JVD. ABDOMEN: Soft, non-distended, no guarding. MSK: Normal ROM, no swelling/deformity to bilateral UEs or LEs, moving all extremities without weakness, no cyanosis, spine midline without tenderness, normal curvature. NEURO: Mental Status AAOx4 - alert to person, place, time, events No facial droop, no forehead involvement. Motor: No focal weakness - strength 5/5 in bilateral UEs and LEs, proximal and distal, symmetric. Sensory: sensation intact to light touch globally. Gait normal: patient ambulated without ataxia into ED room. PSYCH: euthymic, cooperative, pleasant, appropriate speech Course Vital Signs Vital signs: Vital Signs Temperature 36.7 C 01/28/25 17:20 Pulse 74 01/28/25 17:20 Respiratory Rate 20 01/28/25 17:20 Blood Pressure 132/85 01/28/25 17:20 Pulse Oximetry 93 01/28/25 17:20 Temperature 36.7 C 01/28/25 17:20 Temperature Source Oral 01/28/25 17:20 Pulse 74 01/28/25 17:20 Respiratory Rate 20 01/28/25 17:20 Blood Pressure 132/85 01/28/25 17:20 Blood Pressure Position Sitting 01/28/25 17:20 Pulse Oximetry 93 01/28/25 17:20 Oxygen Delivery Method Room Air 01/28/25 17:20 Oxygen Flow Rate 0 01/28/25 17:20 Pain Level 5 01/28/25 17:20 Procedure Abscess Drainage Date of Procedure: 01/28/25 Time of Procedure: 18:23 Provider that performed the procedure: Ancelmo Casarez Time Out Performed: No Patient Consented: Verbally Location of Exam: Upper back/right side. Ultrasound: Not used Complications: None Procedure Description Note: 5 mL of lidocaine was injected in sterile fashion after thoroughly cleaning the abscess area to the right shoulder blade with ChloraPrep, a 1 cm vertical incision was made at the most prominent point of the 2 cm wide abscess and copious amounts of purulent material and what looks like sebaceous cyst detritus was evacuated with manual expression, it was packed with iodoform gauze, I directed the patient to take this gauze out in about 72 hours, continue with his planned general surgery follow-up as this sebaceous cyst could refill. Medical Decision Making This dictation utilizes [id number] dictation software and may contain unedited grammatical errors. 64 year-old male presents to ED today by POV/ambulating with a chief complaint of soft tissue abscess/swelling to R shoulderblade with onset for months, recently started getting reddened and painful. Quality described as throbbing, very tender, no radiation to fever, active drainage, red streaking outward, nausea, endorses it hurts when he moves his neck/arm due to proximity. Severity is described as mdoerate. Palliating factors include nothing specific attempted. Provoking factors include touch/movement. Events leading up to the incident/Associated Symptoms: [facility], and had outpatient Gen Surg scheduled in April. Patients' medical history: Noncontributory. Family and social history: Noncontributory. Pertinent exam findings / vital signs include 2cm abscess or infected sebasceous cyst to R shoulderblade, no lymphadenitis, no active drainage, nontoxic vitals. Differential / pathologies of concern include abscess, infected cyst. Diagnostic studies of: -None. Interventions of: -I&D performed, packed with iodoform dressing. ED Course/Assessment/Plan: 64-year-old male presents with longstanding abscess to the right shoulder blade, this was drained by I&D, there was copious amounts of purulent material as well as chunky material consistent with an infected sebaceous sinus, I recommend he follow-up with [facility] and keep his general surgery outpatient visit in April as this is likely to refill, stressed strict return criteria for any signs of infection, advised to remove the packing in 72 hours and keep the area clean and dry, perform warm compresses after removal as needed to keep the area draining. Findings not consistent with sepsis, solid mass, lipoma. Disposition of Abscess of Skin of Right Shoulder. Patient verbalized understanding of the plan and return to ED criteria and engaged in shared decision making. Medical Records Medical records reviewed: Yes I reviewed the patient's medical records. PFSH All Active Problems (Updated 01/28/25 @ 18:26 by ALEK Keenan) Abscess of skin of right shoulder (Acute) Painful total knee replacement, right (Acute) s/p revision of patellar component right knee 12/12/23 Synovial cyst of right popliteal space (Acute) Depression (Chronic) Seropositive rheumatoid arthritis (Acute) Cardiac murmur (Acute) Hypertension (Chronic) Surgical History History of surgery on arm Metal carmen in (L) arm Total knee arthroplasty (03/26/06) Right ORIF clavicle (11/29/09) left Social History Smoking/Tobacco Use Status: Never Smoking risk assessment performed?: Yes Alcohol Intake: never Drug use: Daily Substance use type: marijuana Details: No marijuana use today. Housing: house Do you feel safe at home: Yes Do you feel safe in your relationship?: Yes POCUS Exam (ED) Limited Soft Tissue Exam PROVIDER THAT PERFORMED THE STUDY: Ancelmo Muse
[2025-01-28] MEDS: Lidocaine 1% Pres-Free 5 ML VIAL (18:26)
[2025-01-28 18:33] VITALS: BP 142/86; PULSE 82; RESP 18; O2SAT 97
== END 2025-01-28 18:34 | disposition home or self-care (01) ==
LOC: ER 18:41
PROVIDERS: Emergency Provider Physician Assistant
DX: L02.413 Cutaneous abscess of right upper limb (principal)
CPT/HCPCS: 10061; 99283; J2003